=== PATIENT | male | born 1960 | race African-American/Black ===

== ENCOUNTER 2016-10-20 23:04 | Emergency (ER) | payer MEDICARE, MEDICAID ==
[~2016-10-20] VITALS: Ht 180.3 cm; Wt 113.4 kg
[~2016-10-20 23:04] MED LIST: AMLO5TAB2 PO; ASCO500T11 GT; ATEN50TA PO; CIPR-217 PO; CLON0.1T PO; CLOT1CRE78; FAM20T OP; FENO145T20 PO; GABA-494; HYDROCO/APAP PO; LAC30LQ GT; LEVEMIR SC; LOSA50TA6 PO; METH-824 PO; NOVOLOG SUBCUT; ONDA8TAB9 PO; OXYB10TA13 PO; TAPE100T11 PO; TRAM50TA2 PO; VEN75XRT PO; ZALE10CA44; [UNRECOGNIZED DRUG - CODE] PO
[2016-10-21] MEDS ORDERED: NALBUPHINE HCL 10 MG/1ml INJECTION IV ONE (00:30)
[2016-10-21 00:33] LABS: Basophils # (auto) 0.1 uL; Basophils % (auto) 0.3 % (0.0-2.0); DEFINITIVE VIEW TRANSMISSION; Eosinophils # (auto) 0.1 uL; Eosinophils % (auto) 0.6 % (0.0-7.0); Hematocrit 39.4 % (41.0-53.0); Hemoglobin 12.2 g/dL (13.5-17.5); Lymphocytes # (auto) 2.3 uL; Lymphocytes % (auto) 13.7 % (10.0-50.0); Mean Corpuscular Hemoglobin 23.9 pg (28.0-32.0); Mean Corpuscular Volume 77.2 fL (80.0-100.0); Mean Platelet Volume 11.1 fL (7.4-10.4); Monocytes # (auto) 0.6 uL; Monocytes % (auto) 3.5 % (0.0-12.0); Neutrophils # (auto) 13.9 uL; Neutrophils % (auto) 81.9 % (37.0-80.0); Platelet Count (auto) 346 10^3/uL (140-450); Red Cell Distribution Width 15.6 % (11.6-16.0); SUSPECT VIEW TRANSMISSION
[2016-10-21 00:35] LABS: Albumin 2.9 g/dL (3.4-5.0); BUN/Creatinine Ratio 13.8; Calcium 8.8 mg/dL (8.5-10.1); Potassium 5.1 mmol/L (3.5-5.1)
[2016-10-21 00:38] LABS: Bilirubin, Total 0.3 mg/dL (0.2-1.0); Total Protein 9.2 g/dL (6.4-8.2)
[2016-10-21 00:40] LABS: INR 0.97 (0.9-1.15); Partial Thromboplastin Time 27.1 sec (22.64-33.71); Prothrombin Time 10.5 sec (9.37-12.3)
[2016-10-21] MEDS ORDERED: MORPHINE SULFATE 4 MG/ML SYRG IV ONE (02:30)
[2016-10-21] MEDS ORDERED: ONDANSETRON HCL 4 MG/2 ML VIAL IV ONE (02:30)
[2016-10-21] MEDS ORDERED: NEOMYCIN-BACITRACIN-POLYM UNITDOSE PKG TOP OINT TOP ONE ×2 (02:51→03:15)
[2016-10-21] MEDS ORDERED: cloNIDine HCL 0.1 MG TAB PO ONE (03:30)
[2016-10-21] MEDS ORDERED: cloNIDine HCL 0.1 MG TAB ONE (03:30)
[2016-10-21 04:15] VITALS: BP 154/99
== END 2016-10-21 04:36 | disposition home or self-care (01) ==
LOC: EDBD 23:04 → ER 23:06
DX: R51 Headache (principal); I10 Essential (primary) hypertension; E11.65 Type 2 diabetes mellitus with hyperglycemia; Z79.4 Long term (current) use of insulin; D72.829 Elevated white blood cell count, unspecified; R42 Dizziness and giddiness; Z87.440 Personal history of urinary (tract) infections; Z86.73 Personal history of transient ischemic attack (TIA), and cerebral infarction without residual deficits; Z87.442 Personal history of urinary calculi
CPT/HCPCS: 36415; 70450; 80053; 85025; 85610; 85730; 93005; 94761; 96374; 96375; 99285; J2270; J2300; J2405

== ENCOUNTER 2017-01-28 08:52 | Day surgery (SDC) | payer MEDICARE, MEDICAID ==
[2017-01-27 16:43] LABS: Basophils # (auto) 0 uL; Basophils % (auto) 0.2 % (0.0-2.0); CONDITION Y; DEFINITIVE SEE PRINTOUT; Eosinophils # (auto) 0.2 uL; Eosinophils % (auto) 1.2 % (0.0-7.0); Hemoglobin 9.7 g/dL (13.5-17.5); Lymphocytes # (auto) 2.8 uL; Lymphocytes % (auto) 20.9 % (10.0-50.0); Mean Corpuscular Hemoglobin 23.6 pg (28.0-32.0); Mean Corpuscular Hgb Conc. 31.4 g/dL (32.0-36.0); Mean Corpuscular Volume 75.3 fL (80.0-100.0); Mean Platelet Volume 10.4 fL (7.4-10.4); Monocytes # (auto) 1.1 uL; Monocytes % (auto) 8.3 % (0.0-12.0); Neutrophils # (auto) 9.2 uL; Neutrophils % (auto) 69.4 % (37.0-80.0); Platelet Count (auto) 385 10^3/uL (140-450); White Blood Cell 13.2 10^3/uL (4.4-10.8)
[2017-01-27 16:54] LABS: Urine Bilirubin Negative (Negative); Urine Color Red (Yellow); Urine Glucose TRACE mg/dL (Normal); Urine Ketone Negative (Negative); Urine Nitrite Negative (Negative); Urine RBC 1509 /hpf (0 - 3); Urine Urobilinogen Normal (Negative)
[2017-01-27 16:55] LABS: Red Cell Distribution Width 20.1 % (11.6-16.0); Urine Blood 3+ /uL (Negative)
[2017-01-27 16:57] LABS: Calcium 8.4 mg/dL (8.5-10.1); Potassium 3.9 mmol/L (3.5-5.1)
[2017-01-27 17:00] LABS: Albumin 2.4 g/dL (3.4-5.0); BUN/Creatinine Ratio 11.7
[2017-01-27 17:02] LABS: INR 0.97 (0.9-1.15); Partial Thromboplastin Time 29.2 sec (22.64-33.71); Prothrombin Time 10.6 sec (9.37-12.3)
[2017-01-27 17:03] LABS: Bilirubin, Total 0.3 mg/dL (0.2-1.0); Total Protein 8.7 g/dL (6.4-8.2)
[2017-01-27 17:30] LABS: Anisocytosis Slight; Hypochromia Slight; Platelet Estimate Adequate; Schistocytes FEW
[~2017-01-28] VITALS: Ht 185.4 cm; Wt 104.3 kg
[~2017-01-28 08:52] MED LIST changes: -ASCO500T11 GT; +ASCO500T11 PO; -ATEN50TA PO; +ATOR20TA50 PO; -CIPR-217 PO; -CLOT1CRE78; -FAM20T OP; +FAM20T PO; -FENO145T20 PO; -GABA-494; +GABA-494 PO; +HYDR-531 PO; -HYDROCO/APAP PO; +INSU100I2 SC; -LAC30LQ GT; +LAC30LQ PO; +LOSA100T27 PO; -LOSA50TA6 PO; -METH-824 PO; +METO-159 PO; +NALO1TAB PO; -NOVOLOG SUBCUT; +ONDA8TAB6 PO; -ONDA8TAB9 PO; -OXYB10TA13 PO; +SILD50TA42 PO; -TRAM50TA2 PO; -ZALE10CA44; -[UNRECOGNIZED DRUG - CODE] PO
[2017-01-28] MEDS ORDERED: ceFAZolin 1GM/50ML D5W 50 ML IV ONE (12:13)
[2017-01-28] MEDS ORDERED: fentaNYL CITRATE 100 MCG/2 ML VL ONE ×2 (13:35→14:43)
[2017-01-28] MEDS ORDERED: PROPOFOL 10 MG/ML 20 ML IV ONE (13:40)
[2017-01-28] MEDS ORDERED: MIDAZOLAM HCL 1MG/1ML-2 ML VIAL ONE (14:44)
[2017-01-28] MEDS ORDERED: ePHEDrine SULFATE 50 MG/ML AMP IV PRN (14:45)
[2017-01-28] MEDS ORDERED: hydrALAZINE HCL 20 MG/ML VL IV PRN (14:45)
[2017-01-28] MEDS ORDERED: ONDANSETRON HCL 4 MG/2 ML VIAL IV ONE (14:45)
[2017-01-28] MEDS ORDERED: fentaNYL CITRATE 100 MCG/2 ML VL IV ONE (15:00)
[2017-01-28 15:30] VITALS: BP 141/84
== END 2017-01-28 15:30 | disposition home or self-care (01) ==
LOC: SUR 08:52
PROVIDERS: ATTEND Urology
DX: N20.0 Calculus of kidney (principal); E11.9 Type 2 diabetes mellitus without complications; I10 Essential (primary) hypertension; I63.9 Cerebral infarction, unspecified; B19.20 Unspecified viral hepatitis C without hepatic coma; F32.9 Major depressive disorder, single episode, unspecified
CPT/HCPCS: 36415; 50590; 80053; 81001; 82962; 85025; 85610; 85730; 87086; 87088; 87186; J0690; J2250; J2704; J3010

== ENCOUNTER 2021-03-22 12:24 | Emergency (ER) | payer MEDICARE, MEDICAID ==
[~2021-03-22] VITALS: Ht 185.4 cm; Wt 131.5 kg
[~2021-03-22 12:24] MED LIST changes: +AMLO-489 PO; -AMLO5TAB2 PO; +ASPI81CH43 PO; +CHOL20007 PO; -CLON0.1T PO; +CLON0.2D6 TOP; +CLOT1CRE13 TOP; -FAM20T PO; +FERR-20 PO; -GABA-494 PO; +GABA100C9 PO; +HYDR100T22 PO; +INSUINJ37 SC; -LEVEMIR SC; -LOSA100T27 PO; +MULTTAB99 PO; +ONDA-143 PO; -ONDA8TAB6 PO; -SILD50TA42 PO; -TAPE100T11 PO; -VEN75XRT PO; +VENL225T10 PO
[2021-03-22 13:14] LABS: Basophils # (auto) 0.2 10 ^3/uL (0-0.2); Eosinophils # (auto) 0.1 10 ^3/uL (0-0.8); Eosinophils % (auto) 0.8 % (0.0-7.0); Hematocrit 31.9 % (41.0-53.0); Hemoglobin 10.4 g/dL (13.5-17.5); Lymphocytes # (auto) 1.3 10 ^3/uL (0.4-5.4); Lymphocytes % (auto) 13.1 % (10.0-50.0); Mean Corpuscular Hemoglobin 30.6 pg (28.0-32.0); Mean Corpuscular Hgb Conc. 32.5 g/dL (32.0-36.0); Mean Corpuscular Volume 94.1 fL (80.0-100.0); Monocytes # (auto) 1.3 10 ^3/uL (0-1.3); Monocytes % (auto) 12.8 % (0.0-12.0); Neutrophils % (auto) 71.3 % (37.0-80.0); Red Blood Cells 3.39 10^6/uL (4.5-5.90); Red Cell Distribution Width 13.9 % (11.8-14.3); White Blood Cell 9.8 10^3/uL (4.4-10.8)
[2021-03-22 13:33] LABS: Anion Gap 11 (5-15); Blood Urea Nitrogen 48 mg/dL (7-18); Calcium 8.9 mg/dL (8.5-10.1); Carbon Dioxide 23 mmol/L (21-32); Chloride 106 mmol/L (98-107); Glucose 152 mg/dL (74-106); Potassium 3.8 mmol/L (3.5-5.1); Sodium 140 mmol/L (136-145)
[2021-03-22 13:39] LABS: Alanine Aminotransferase 52 U/L (16-61); Alkaline Phosphatase 68 U/L (45-117); Aspartate Aminotransferase 34 U/L (15-37); BUN/Creatinine Ratio 6.9; Bilirubin, Total 0.3 mg/dL (0.2-1.0); GFR African American 10 mL/min; GFR Non-African American 9 mL/min
[2021-03-22] MEDS ORDERED: ASPirin 325 MG TAB PO ONE (13:45)
[2021-03-22 16:21] VITALS: BP 115/68
== END 2021-03-22 16:49 | disposition short-term general hospital (02) ==
LOC: EDUNIT# 12:24 → ER 12:24 → EDBD 12:24 → ER 16:49
DX: R53.1 Weakness (principal); I10 Essential (primary) hypertension; E11.9 Type 2 diabetes mellitus without complications; E78.5 Hyperlipidemia, unspecified; N20.0 Calculus of kidney; I67.2 Cerebral atherosclerosis; G31.9 Degenerative disease of nervous system, unspecified; G93.89 Other specified disorders of brain; Z86.73 Personal history of transient ischemic attack (TIA), and cerebral infarction without residual deficits; Z98.890 Other specified postprocedural states; Z79.4 Long term (current) use of insulin; Z79.899 Other long term (current) drug therapy; Z98.2 Presence of cerebrospinal fluid drainage device
CPT/HCPCS: 36415; 70450; 71045; 80053; 82962; 84484; 85025; 93005